=== PATIENT | male | born 1990 | race Hispanic/Latino ===

== ENCOUNTER 2021-02-13 04:45 | Emergency (ER) | payer OTHER ==
[~2021-02-13] VITALS: Ht 180.3 cm; Wt 158.8 kg
[2021-02-13 04:51] VITALS: BP 158/91
== END 2021-02-13 06:18 | disposition home or self-care (01) ==
LOC: EDH 04:45
DX: U07.1 COVID-19 (principal); J06.9 Acute upper respiratory infection, unspecified
CPT/HCPCS: 87635; 87804 ×2; 99283; C9803

== ENCOUNTER 2022-04-02 14:43 | Emergency (ER) | payer OTHER ==
[~2022-04-02] VITALS: Ht 182.9 cm; Wt 170.6 kg
[2022-04-02 16:33] VITALS: BP 135/74
== END 2022-04-02 16:37 | disposition home or self-care (01) ==
LOC: EDH 14:43
DX: S09.90XA Unspecified injury of head, initial encounter (principal); Z90.49 Acquired absence of other specified parts of digestive tract; X58.XXXA Exposure to other specified factors, initial encounter; Y93.89 Activity, other specified; Y92.89 Other specified places as the place of occurrence of the external cause; Y99.8 Other external cause status
CPT/HCPCS: 70450